=== PATIENT | female | born 2000 | race Caucasian/White ===

== ENCOUNTER → 2020-07-27 | Outpatient (CLI) | payer BC ==
[~2020-07-27] MED LIST: IOHEXOL 240 MG/ML 50ML VIAL. ONE
[2020-07-27] MEDS: IOHEXOL 300 MG/ML 75 ML VIAL. IV ONE (14:06)
[2020-07-27] MEDS: IOHEXOL 240 MG/ML 50ML VIAL. PO ONE (14:08)
--- NOTE | 2020-07-27 17:01 | RAD ---
EXAM: CT ABDOMEN/PELVIS WITH CONTRAST. HISTORY: Abdominal pain, nausea. TECHNIQUE: Computed tomography of the abdomen and pelvis was performed after the intravenous administ ration of iodinated contrast. One or more of the following individualized dose reduction techniques w ere utilized for this examination: 1. Automated exposure control. 2. Adjustment of the mA and/or kV according to patient size. 3. Use of iterative reconstruction technique. COMPARISON: None. FINDINGS: Lung windows through the visualized portions of the bases reveal mild atelectasis. Bone win dows reveal no suspicious lesions. The liver, gallbladder, pancreas, adrenal glands, spleen and kidneys are unremarkable. There are no p athologically enlarged lymph nodes. Multiple small follicles are noted in the ovaries. The bladder is decompressed but demonstrates mild wall thickening. The appendix is not inflamed. There is no small bowel obstruction. The left and sigm oid colon are decompressed but there is mild wall thickening. IMPRESSION: 1. Mild left colonic wall thickening may reflect only luminal decompression. Correlate for mild colit is. 2. Nonfocal bladder wall thickening suggests chronic outlet obstruction or inflammation. Correlate urinalysis. Electronically signed by: Adelita Winn MD (07/27/2020 4:59 PM) [id number]
== END ==
LOC: PMG 12:53
PROVIDERS: ATTEND Family Medicine
DX: K52.9 Noninfective gastroenteritis and colitis, unspecified (principal); J98.11 Atelectasis
CPT/HCPCS: 74177; Q9966; Q9967